=== PATIENT | female | born 1950 | race Caucasian/White ===

== ENCOUNTER → 2017-03-14 | Outpatient (CLI) | payer MEDICARE, OTHER ==
[~2017-03-14] MED LIST: ALAVERT10 MG PO; ALLEGRA 180MG180 MG PO; ALLEGRA ALLERG180 MG PO; ALLEGRA ODT30 MG PO; ASPIRIN 81M81 MG/TA2 PO; BACTRIM DS 8001 TAB PO; CALCIUM1 CAP PO; CEPHALEXIN500 M1 PO; DUO-KAPS1 CAP PO; FOSAMAX 70MG TA70 MG PO; MOTRIN 800800 MG/TAB PO; MULTI VITAMINS1 TAB PO; OS-CAL 500 + D1 TAB PO; PRILOSEC 20MG20 MG PO; SINGULAIR 110 MG/TAB PO; VITAMIN D1000 IU PO; VITAMINS
== END ==
LOC: MC.RAD 10:40
DX: Z12.31 Encounter for screening mammogram for malignant neoplasm of breast (principal)

== ENCOUNTER → 2018-04-16 | Outpatient (CLI) | payer MEDICARE, OTHER | LOC: MC.RAD 04-07 11:20 | DX: Z12.31 Encounter for screening mammogram for malignant neoplasm of breast (principal) ==

== ENCOUNTER → 2019-04-30 | Outpatient (CLI) | payer MEDICARE, OTHER | LOC: MC.RAD 11:11 | DX: Z12.31 Encounter for screening mammogram for malignant neoplasm of breast (principal) ==

== ENCOUNTER 2019-12-06 10:00 | Outpatient (RCR) | payer MEDICARE, OTHER | END 2019-12-13 11:28 | disposition home or self-care (01) | LOC: WSOT 10:00 | DX: M19.031 Primary osteoarthritis, right wrist (principal) ==

== ENCOUNTER → 2020-05-03 | Outpatient (CLI) | payer MEDICARE, OTHER | LOC: MC.RAD 10:00 | DX: Z12.31 Encounter for screening mammogram for malignant neoplasm of breast (principal) ==

== ENCOUNTER 2020-11-13 09:00 | Outpatient (RCR) | payer MEDICARE, OTHER | END 2021-01-17 14:04 | disposition home or self-care (01) | LOC: WSOT 09:00 | DX: M19.032 Primary osteoarthritis, left wrist (principal) ==

== ENCOUNTER 2021-03-15 10:00 | Outpatient (RCR) | payer MEDICARE, OTHER | END 2021-03-16 | disposition home or self-care (01) | LOC: WSOT | DX: M19.032 Primary osteoarthritis, left wrist (principal) ==

== ENCOUNTER 2021-04-26 10:00 | Outpatient (RCR) | payer MEDICARE, OTHER | END 2021-05-14 | disposition home or self-care (01) | LOC: WSOT | DX: M19.032 Primary osteoarthritis, left wrist (principal) ==

== ENCOUNTER 2021-05-17 11:15 | Outpatient (RCR) | payer MEDICARE, OTHER | END 2021-05-29 10:27 | disposition home or self-care (01) | LOC: WSOT 11:15 | DX: M19.032 Primary osteoarthritis, left wrist (principal) ==

== ENCOUNTER → 2021-05-25 | Outpatient (CLI) | payer MEDICARE, OTHER | LOC: MC.RAD 09:46 | DX: Z12.31 Encounter for screening mammogram for malignant neoplasm of breast (principal) ==